=== PATIENT | male | born 1985 | race African-American/Black ===

== ENCOUNTER 2017-07-29 05:37 | Emergency (ER) | payer BC, OTHER ==
[2017-07-29] MEDS ORDERED: ERYT1OIN6 OP (05:53)
--- NOTE | 2017-07-29 05:54 | PHYS DOC ---
Past Medical History Past Medical History: No Pertinent History Additional Past Medical Histor: strep throat Past Surgical History: Cholecystectomy Alcohol Use: Occasionally Drug Use: Marijuana Adult General Chief Complaint Chief Complaint: EYE PROBLEMS HPI HPI Patient is a 31 year old male presenting to the emergency department for evaluation of right redness drainage and matting chest this morning. Symptoms started yesterday with some more tearing and redness to his eye however this morning woke up that it shut so he came here for further evaluation. He says that he had the same symptoms last year and was treated for pinkeye and he improved after antibiotic ointment. Patient has slightly blurred vision but does not wear contact lenses, he wears glasses but there broke currently so he is not wearing them. No fevers chills nausea vomiting foreign body history to the eye. Review of Systems Review of Systems Constitutional: Denies fever or chills [] Eyes: + change in visual acuity, redness, eye pain [] Allergies Allergies Allergies Coded Allergies Type Severity Reaction Last Updated Verified cinnamon Allergy Unknown 07/29/17 Yes Physical Exam Physical Exam Constitutional: Well developed, well nourished, no acute distress, non-toxic appearance. [] Eyes: PERRLA, EOMI, conjunctiva injected especially on the medial side of his right eye. No hyphema or hyphenon. EKG EKG [] Radiology/Procedures Radiology/Procedures [] Course & Med Decision Making Course & Med Decision Making Exam most consistent with early conjunctivitis however episcleritis is a consideration as well. We'll treat with erythromycin ointment and NSAIDs have him follow with ophthalmology within the next 24 hours and have him come back to the ED sooner with any worsening pain vision changes or other general concerns. Patient aware and agreeable with plan and verbalized understanding of the above instructions. Dragon Disclaimer Dragon Disclaimer This electronic medical record was generated, in whole or in part, using a voice recognition dictation system. Departure Departure Impression: Primary Impression: Conjunctivitis Disposition: 01 HOME, SELF-CARE Condition: STABLE Referrals: NO PCP (PCP) EDGAR OLGUIN MD Patient Instructions: Conjunctivitis (Viral and Bacterial) Additional Instructions: TAKE 400MG OF IBUPROFEN EVERY 6 HOURS FOR THE NEXT 3-5 DAYS UNTIL SYMPTOMS IMPROVE. FOLLOW WITH THE EYE DOCTOR WITHIN 24-48 HOURS TO ENSURE IMPROVEMENT AND COME BACK TO THE ED WITH ANY NEW OR WORSENING SYMPTOMS. THANK YOU! Scripts Erythromycin Base (Erythromycin) 1 Gm Oint...g. 1 GM OP Q3HRS for 5 Days, MISC Prov: CLAU BARTLETT DO 07/29/17 Problem Qualifiers Primary Impression: Conjunctivitis Conjunctivitis type: acute Acute conjunctivitis type: unspecified Laterality: right Qualified Codes: H10.31 - Unspecified acute conjunctivitis , right eye CLAU BARTLETT DO Jul 29, 2017 05:53
[2017-07-29 05:57] VITALS: BP 121/71
== END 2017-07-29 06:00 | disposition home or self-care (01) ==
LOC: ER 05:37
DX: H10.31 Unspecified acute conjunctivitis, right eye (principal); F12.10 Cannabis abuse, uncomplicated; Z91.018 Allergy to other foods
CPT/HCPCS: 99283

== ENCOUNTER 2017-10-07 09:30 | Emergency (ER) | payer BC ==
[2017-10-07] MEDS: ALPRAZolam 0.5 MG TABLET PO ×2 (10:15)
== END 2017-10-07 10:58 | disposition home or self-care (01) ==
LOC: ER 09:30
DX: F41.0 Panic disorder [episodic paroxysmal anxiety] (principal); R06.02 Shortness of breath; R53.1 Weakness; R20.2 Paresthesia of skin; F12.10 Cannabis abuse, uncomplicated; Z90.49 Acquired absence of other specified parts of digestive tract; Z91.018 Allergy to other foods
CPT/HCPCS: 71046; 93005; 99284-25

== ENCOUNTER 2017-11-25 23:37 | Emergency (ER) | payer SELFPAY, BC | END 2017-11-26 00:15 | disposition home or self-care (01) | LOC: ER 11-26 00:15 | DX: L25.9 Unspecified contact dermatitis, unspecified cause (principal); F12.10 Cannabis abuse, uncomplicated; Z90.49 Acquired absence of other specified parts of digestive tract; Z91.018 Allergy to other foods | CPT/HCPCS: 99283 ==